=== PATIENT | male | born 1940 | race Caucasian/White ===

== ENCOUNTER 2025-07-15 12:30 | Outpatient (CLI) | payer OTHER | END 2025-07-15 12:31 | disposition home or self-care (01) | LOC: PET 12:30 | PROVIDERS: ATTEND Internal Medicine Hematology & Oncology | DX: C61 Malignant neoplasm of prostate (principal); C79.51 Secondary malignant neoplasm of bone; C77.2 Secondary and unspecified malignant neoplasm of intra-abdominal lymph nodes; C79.89 Secondary malignant neoplasm of other specified sites; Z90.79 Acquired absence of other genital organ(s); Z90.6 Acquired absence of other parts of urinary tract | CPT/HCPCS: 78815; A9595-JZ ==